=== PATIENT | female | born 1980 | race Two or more races ===

== ENCOUNTER → 2017-04-17 | Outpatient (CLI) | payer BC | END | disposition home or self-care (01) | LOC: CFH 07:27 | PROVIDERS: ATTEND Obstetrics & Gynecology Female Pelvic Medicine and Reconstructive Surgery | DX: N63 Unspecified lump in breast (principal); N93.8 Other specified abnormal uterine and vaginal bleeding; N64.3 Galactorrhea not associated with childbirth | CPT/HCPCS: 76642; 76830; G0204 ==

== ENCOUNTER 2018-06-23 12:50 | Emergency (ER) | payer BC ==
[~2018-06-23] VITALS: Ht 152.4 cm; Wt 62.0 kg
[2018-06-23] MEDS ORDERED: ONDANSETRON ODT 4 MG PO ONE ×2 (13:30→14:00)
[2018-06-23] MEDS ORDERED: DEXAMETHASONE 4 MG/ML, 1ML PO ONE (13:30)
[2018-06-23] MEDS ORDERED: PLEASE ENTER ALLERGIES MC SCH (13:30)
[2018-06-23] MEDS ORDERED: ONDANSETRON ODT 4 MG ONE (14:28)
[2018-06-23 15:15] VITALS: BP 141/86
== END 2018-06-23 16:17 | disposition home or self-care (01) ==
LOC: ED 15:15
DX: J02.8 Acute pharyngitis due to other specified organisms (principal); B97.89 Other viral agents as the cause of diseases classified elsewhere; R10.13 Epigastric pain
CPT/HCPCS: 87081; 87880; 99284; J1100; Q0162

== ENCOUNTER 2019-10-31 15:33 | Observation (INO) | payer BC ==
[~2019-10-31] VITALS: Ht 165.1 cm; Wt 56.7 kg
[2019-10-31 16:13] LABS: BASOPHILS # (AUTO) 0.02 x10^3/uL (0-0.1); BASOPHILS % (AUTO) 0 % (0-1); EOSINOPHILS # (AUTO) 0.04 x10^3/uL (0-0.4); EOSINOPHILS % (AUTO) 0 % (1-7); LYMPHOCYTES # (AUTO) 1.43 x10^3/uL (1-3.4); LYMPHOCYTES % (AUTO) 11 % (22-44); MD NO; MEAN CORPUSCULAR HEMOGLOBIN 30.4 pg (27.0-34.8); MEAN CORPUSCULAR HGB CONC 33.4 g/dL (32.4-35.8); MEAN PLATELET VOLUME 7.6 fL (7.4-10.4); MONOCYTES # (AUTO) 0.71 x10^3/uL (0.2-0.8); MONOCYTES % (AUTO) 6 % (2-9); NEUTROPHILS # (AUTO) 10.36 x10^3/uL (1.8-6.8); NEUTROPHILS % (AUTO) 83 % (42-75); PLATELET COUNT 379 x10^3/uL (130-400); RED BLOOD COUNT 4.71 x10^6/uL (3.82-5.3); RED CELL DISTRIBUTION WIDTH 13.3 % (9.6-15.2)
[2019-10-31 16:26] LABS: ALANINE AMINOTRANSFERASE 30 U/L (12-78); ALBUMIN 3.4 g/dL (3.4-5.0); ANION GAP 5 mmol/L (5-15); CALCIUM 8.5 mg/dL (8.5-10.1); CHLORIDE 106 mmol/L (98-107); CREATININE 0.69 mg/dL (0.55-1.02)
[2019-10-31 16:28] LABS: ALKALINE PHOSPHATASE 65 U/L (45-117); BILIRUBIN,TOTAL 0.2 mg/dL (0.2-1.0); TOTAL PROTEIN 7.5 g/dL (6.4-8.2)
--- NOTE | 2019-10-31 16:40 | NUR ---
PT WITH C/O ABD CRAMPING AND DIARRHEA FOR 2 WEEKS, STATES SHE HAS A HX OF IBS BUT SEEMS TO BE WORSE THAN USUAL, PT RECENTLY TAKING ABX FOR "SORE THROAT". PT STATES SHE WAS SENT HERE BY HER PCP TO HAVE A CT OF ABD COMPLETED. PT AMBULATED TO BR TO ATTEMPT TO PROVIDE STOOL AND URINE SAMPLES. PT STATES SHE IS UNABLE TO HAVE BM AT THIS TIME, UA COLLECTED AND SENT. PIV INITIATED, PT TO BP, CONT PULSE OX.
[2019-10-31 17:13] LABS: MICROSCOPIC INDICATED
[2019-10-31 17:27] LABS: CULTURE INDICATED? NO
[2019-10-31] MEDS ORDERED: OMNIPAQUE 350 MG/ML, 100ML BOTTLE ONE (17:47)
[2019-10-31] MEDS ORDERED: SODIUM CHLORIDE FLUSH 10ML SYR IVF PRN (19:00)
[2019-10-31] MEDS ORDERED: SODIUM CHLORIDE 0.9% 1,000 ML IV ONE (19:00)
--- NOTE | 2019-10-31 19:08 | NUR ---
BEDSIDE REPORT RECIEVED FROM JACOBY BAUMANN
[2019-10-31] MEDS ORDERED: METRONIDAZOLE PMX 500MG/100ML 100 ML IV SCH (19:30)
[2019-10-31] MEDS ORDERED: ONDANSETRON 2MG/ML, 2ML IVPush PRN (19:30)
[2019-10-31] MEDS: SODIUM CHLORIDE 0.9% 1,000 ML IV SCH (20:05)
--- NOTE | 2019-10-31 20:05 | NUR ---
REPORT TO JACOBY HICKS
[2019-10-31 20:21] VITALS: BP 145/81
[2019-10-31] MEDS: ACETAMINOPHEN 325 MG TABLET PO PRN (21:22)
[2019-10-31 22:19] LABS: CLOSTRIDIUM DIFFICILE ANTIGEN POSITIVE; CLOSTRIDIUM DIFFICILE TOXIN POSITIVE (Negative)
[2019-10-31] MEDS: VANCOMYCIN 50 MG/ML ORAL SUSP PO SCH (23:53)
[2019-11-01] MEDS: KETOROLAC 30 MG/1 ML IVPush PRN ×4 (00:49→20:52)
[2019-11-01 03:04] VITALS: BP 127/80
[2019-11-01] MEDS: VANCOMYCIN 50 MG/ML ORAL SUSP PO SCH ×3 (05:15→17:03)
[2019-11-01] MEDS: SODIUM CHLORIDE 0.9% 1,000 ML IV SCH ×2 (05:17→18:23)
[2019-11-01 05:27] LABS: ANION GAP 3 mmol/L (5-15); CHLORIDE 109 mmol/L (98-107); CREATININE 0.55 mg/dL (0.55-1.02)
[2019-11-01 05:39] LABS: BASOPHILS # (AUTO) 0.06 x10^3/uL (0-0.1); BASOPHILS % (AUTO) 1 % (0-1); EOSINOPHILS # (AUTO) 0.09 x10^3/uL (0-0.4); EOSINOPHILS % (AUTO) 1 % (1-7); LYMPHOCYTES # (AUTO) 1.57 x10^3/uL (1-3.4); LYMPHOCYTES % (AUTO) 14 % (22-44); MD NO; MEAN CORPUSCULAR HEMOGLOBIN 30.3 pg (27.0-34.8); MEAN CORPUSCULAR HGB CONC 33.8 g/dL (32.4-35.8); MEAN CORPUSCULAR VOLUME 89.5 fL (80-100); MEAN PLATELET VOLUME 7.8 fL (7.4-10.4); MONOCYTES # (AUTO) 0.66 x10^3/uL (0.2-0.8); MONOCYTES % (AUTO) 6 % (2-9); NEUTROPHILS # (AUTO) 9.18 x10^3/uL (1.8-6.8); NEUTROPHILS % (AUTO) 79 % (42-75); PLATELET COUNT 286 x10^3/uL (130-400); RED BLOOD COUNT 4.27 x10^6/uL (3.82-5.3); RED CELL DISTRIBUTION WIDTH 13.4 % (9.6-15.2)
[2019-11-01 08:20] VITALS: BP 141/85
[2019-11-01 14:45] VITALS: BP 159/91
[2019-11-01 19:39] VITALS: BP 146/91
[2019-11-02] MEDS: VANCOMYCIN 50 MG/ML ORAL SUSP PO SCH ×4 (00:04→17:13)
[2019-11-02] MEDS ORDERED: MORPHINE SULFATE 4 MG/ML, 1ML IVPush PRN (00:30)
[2019-11-02 00:32] VITALS: BP 133/83
[2019-11-02] MEDS: SODIUM CHLORIDE 0.9% 1,000 ML IV SCH (00:35)
[2019-11-02] MEDS: KETOROLAC 30 MG/1 ML IVPush PRN ×2 (04:16→11:02)
[2019-11-02 05:57] LABS: BASOPHILS # (AUTO) 0.03 x10^3/uL (0-0.1); BASOPHILS % (AUTO) 0 % (0-1); EOSINOPHILS # (AUTO) 0.08 x10^3/uL (0-0.4); EOSINOPHILS % (AUTO) 1 % (1-7); LYMPHOCYTES # (AUTO) 1.21 x10^3/uL (1-3.4); LYMPHOCYTES % (AUTO) 10 % (22-44); MD NO; MEAN CORPUSCULAR HEMOGLOBIN 30.2 pg (27.0-34.8); MEAN CORPUSCULAR HGB CONC 33.4 g/dL (32.4-35.8); MEAN CORPUSCULAR VOLUME 90.4 fL (80-100); MONOCYTES # (AUTO) 0.63 x10^3/uL (0.2-0.8); MONOCYTES % (AUTO) 5 % (2-9); NEUTROPHILS # (AUTO) 10.57 x10^3/uL (1.8-6.8); NEUTROPHILS % (AUTO) 85 % (42-75); PLATELET COUNT 274 x10^3/uL (130-400); RED BLOOD COUNT 4.11 x10^6/uL (3.82-5.3); RED CELL DISTRIBUTION WIDTH 13.2 % (9.6-15.2)
[2019-11-02 06:07] LABS: ANION GAP 8 mmol/L (5-15); CALCIUM 7.5 mg/dL (8.5-10.1); CHLORIDE 108 mmol/L (98-107)
[2019-11-02 06:08] LABS: CREATININE 0.49 mg/dL (0.55-1.02)
[2019-11-02 07:15] VITALS: BP 128/84
[2019-11-02] MEDS ORDERED: POTASSIUM CHLORIDE 20 MEQ TAB.ER.PRT PO ONE (07:30)
[2019-11-02 13:41] VITALS: BP 137/64
[2019-11-02] MEDS ORDERED: BUPR300T4 PO (14:46)
[2019-11-02] MEDS ORDERED: ENOXAPARIN 40 MG/0.4 ML SQ SCH (15:00)
[2019-11-02] MEDS ORDERED: SODIUM CHLORIDE 0.9% 1,000 ML IV SCH (19:05)
[2019-11-02] MEDS: BUPROPION SR 150 MG TABLET PO SCH (20:19)
[2019-11-02] MEDS: ACETAMINOPHEN 325 MG TABLET PO PRN (20:19)
[2019-11-02 20:26] VITALS: BP 135/91
[2019-11-03] MEDS: VANCOMYCIN 50 MG/ML ORAL SUSP PO SCH ×3 (00:23→11:51)
[2019-11-03 02:48] VITALS: BP 129/81
[2019-11-03 05:51] LABS: BASOPHILS # (AUTO) 0.05 x10^3/uL (0-0.1); BASOPHILS % (AUTO) 1 % (0-1); EOSINOPHILS # (AUTO) 0.17 x10^3/uL (0-0.4); EOSINOPHILS % (AUTO) 2 % (1-7); LYMPHOCYTES # (AUTO) 1.33 x10^3/uL (1-3.4); LYMPHOCYTES % (AUTO) 12 % (22-44); MD NO; MEAN CORPUSCULAR HGB CONC 33.2 g/dL (32.4-35.8); MEAN CORPUSCULAR VOLUME 90.4 fL (80-100); MONOCYTES # (AUTO) 0.65 x10^3/uL (0.2-0.8); MONOCYTES % (AUTO) 6 % (2-9); NEUTROPHILS # (AUTO) 8.66 x10^3/uL (1.8-6.8); NEUTROPHILS % (AUTO) 80 % (42-75); PLATELET COUNT 254 x10^3/uL (130-400); RED BLOOD COUNT 4.18 x10^6/uL (3.82-5.3); RED CELL DISTRIBUTION WIDTH 13.2 % (9.6-15.2)
[2019-11-03 06:00] LABS: ANION GAP 5 mmol/L (5-15); CALCIUM 8.2 mg/dL (8.5-10.1); CHLORIDE 107 mmol/L (98-107)
[2019-11-03 06:01] LABS: CREATININE 0.54 mg/dL (0.55-1.02)
[2019-11-03] MEDS ORDERED: POTASSIUM CHLORIDE 20 MEQ TAB.ER.PRT PO ONE (07:30)
[2019-11-03] MEDS: ACETAMINOPHEN 325 MG TABLET PO PRN (09:06)
[2019-11-03] MEDS: BUPROPION SR 150 MG TABLET PO SCH (09:07)
[2019-11-03 09:24] VITALS: BP 109/63
[2019-11-03] MEDS ORDERED: VANC1VIA3 PO (09:45)
== END 2019-11-03 12:04 | disposition home or self-care (01) ==
LOC: ED 19:23 → EDIP 19:24 → INTOOBSV 19:24 → 3N 20:17
PROVIDERS: ADMIT Internal Medicine; ATTEND Internal Medicine
DX: A04.72 Enterocolitis due to Clostridium difficile, not specified as recurrent (principal); R19.7 Diarrhea, unspecified; F32.9 Major depressive disorder, single episode, unspecified; A41.9 Sepsis, unspecified organism; E87.6 Hypokalemia; Z79.899 Other long term (current) drug therapy
CPT/HCPCS: 36415; 74177; 80048; 80053; 81001; 81025; 83735; 84100; 85025; 87324; 89055; 96361; 96374; 96375; 96376; 99284; G0378; J1885; J2270; J3370; J7030; Q9967; 99285

== ENCOUNTER 2019-12-24 10:05 | Emergency (ER) | payer BC ==
[~2019-12-24] VITALS: Ht 152.4 cm; Wt 56.5 kg
[~2019-12-24 10:05] MED LIST: BUPR300T94 PO; VANC1VIA3 PO
[2019-12-24] MEDS ORDERED: DEXAMETHASONE 4 MG/ML, 5ML ONE (13:55)
[2019-12-24] MEDS ORDERED: DEXAMETHASONE 4 MG/ML, 1ML PO ONE (14:00)
[2019-12-24] MEDS ORDERED: BICILLIN-LA 2,400,000 UNITS/4 ML IM ONE (14:00)
--- NOTE | 2019-12-24 14:00 | NUR ---
PATIENT ARRIVES WTIH SORE THROAT AND HAD A COUGH BUT STATES ITS MOSTLY GONE. NOTED A COUGH. SHE STATES THREE DAYS AGO SORE THROAT AND ALL OVER BODY ACHES.
[2019-12-24 14:07] VITALS: BP 124/78
--- NOTE | 2019-12-24 14:07 | NUR ---
waiting for medicine from pharmacy
== END 2019-12-24 14:54 | disposition home or self-care (01) ==
LOC: ED 13:30
DX: J02.0 Streptococcal pharyngitis (principal)
CPT/HCPCS: 96372; 99283; J0561; J1100

== ENCOUNTER 2020-03-18 20:08 | Emergency (ER) | payer BC ==
[~2020-03-18] VITALS: Ht 152.4 cm; Wt 59.1 kg
--- NOTE | 2020-03-18 20:50 | NUR ---
PT HERE FOR FATIGUE AND SORE THROAT. PT HAS HX OF STREP. VSS. PA AT BEDSIDE.
[2020-03-18 21:40] LABS: BASOPHILS # (AUTO) 0.07 x10^3/uL (0-0.1); BASOPHILS % (AUTO) 1 % (0-1); EOSINOPHILS # (AUTO) 0.12 x10^3/uL (0-0.4); EOSINOPHILS % (AUTO) 2 % (1-7); LYMPHOCYTES # (AUTO) 1.91 x10^3/uL (1-3.4); LYMPHOCYTES % (AUTO) 28 % (22-44); MD NO; MEAN CORPUSCULAR HEMOGLOBIN 29.8 pg (27.0-34.8); MEAN CORPUSCULAR HGB CONC 33.6 g/dL (32.4-35.8); MEAN CORPUSCULAR VOLUME 88.7 fL (80-100); MEAN PLATELET VOLUME 8.5 fL (7.4-10.4); MONOCYTES # (AUTO) 0.54 x10^3/uL (0.2-0.8); MONOCYTES % (AUTO) 8 % (2-9); NEUTROPHILS # (AUTO) 4.14 x10^3/uL (1.8-6.8); NEUTROPHILS % (AUTO) 61 % (42-75); PLATELET COUNT 278 x10^3/uL (130-400); RED BLOOD COUNT 4.69 x10^6/uL (3.82-5.3); RED CELL DISTRIBUTION WIDTH 12.9 % (9.6-15.2)
[2020-03-18 21:46] LABS: ALANINE AMINOTRANSFERASE 18 U/L (12-78); ALBUMIN 3.4 g/dL (3.4-5.0); ANION GAP 4 mmol/L (5-15); CALCIUM 8.6 mg/dL (8.5-10.1); CHLORIDE 106 mmol/L (98-107); CREATININE 0.71 mg/dL (0.55-1.02)
[2020-03-18 21:50] LABS: ALKALINE PHOSPHATASE 58 U/L (45-117); BILIRUBIN,TOTAL 0.2 mg/dL (0.2-1.0); TOTAL PROTEIN 7.6 g/dL (6.4-8.2)
--- NOTE | 2020-03-18 22:00 | NUR ---
pt resting with no needs at this time. call light in reach
[2020-03-18 22:11] VITALS: BP 122/79
[2020-03-18 22:47] LABS: MICROSCOPIC NOT IND
--- NOTE | 2020-03-18 23:11 | NUR ---
Patient given discharge instructions and they have confirmed that they understand the instructions. Patient ambulatory with steady gait.
== END 2020-03-18 23:14 | disposition home or self-care (01) ==
LOC: ED 23:02
DX: R53.1 Weakness (principal); B34.9 Viral infection, unspecified; R50.9 Fever, unspecified; Z20.828 Contact with and (suspected) exposure to other viral communicable diseases; R51 Headache; R53.83 Other fatigue
CPT/HCPCS: 36415; 71045; 80053; 81003; 84703; 85025; 99284; U0001

== ENCOUNTER 2020-10-11 17:29 | Emergency (ER) | payer BC ==
[~2020-10-11] VITALS: Ht 152.4 cm; Wt 60.7 kg
--- NOTE | 2020-10-11 17:52 | NUR ---
assumed care of pt. pt ambulatory fom triage c/o SOB. EGK completed at bedside
--- NOTE | 2020-10-11 17:52 | NUR ---
Dr. eMjia at bedside for eval
--- NOTE | 2020-10-11 18:10 | NUR ---
lab at bedside to draw
--- NOTE | 2020-10-11 18:15 | NUR ---
CXR at bedside pt c/o intermittent SOB and sinus congestion for a few days. pt reports that she just had a long plane ride form [place]. pt reports that she has had some bloody mucus from her sinuses, but that she has chronic sinus congestion. no resp. distres. denies CP. pt sitting up on [employer] on her cell phone. no family at bedside pt updated on POC
[2020-10-11] MEDS ORDERED: SUMA25TA4 PO (18:28)
[2020-10-11 18:37] LABS: BASOPHILS % (AUTO) 1 % (0-1); EOSINOPHILS % (AUTO) 1 % (1-7); LYMPHOCYTES % (AUTO) 10 % (22-44); MEAN CORPUSCULAR HEMOGLOBIN 30.9 pg (27.0-34.8); MEAN CORPUSCULAR HGB CONC 34.1 g/dL (32.4-35.8); MEAN PLATELET VOLUME 8.1 fL (7.4-10.4); MONOCYTES % (AUTO) 9 % (2-9); NEUTROPHILS % (AUTO) 80 % (42-75); PLATELET COUNT 316 x10^3/uL (130-400); RED BLOOD COUNT 4.53 x10^6/uL (3.82-5.3); RED CELL DISTRIBUTION WIDTH 12.9 % (9.6-15.2)
[2020-10-11 18:38] LABS: ALANINE AMINOTRANSFERASE 25 U/L (12-78); ALBUMIN 3.7 g/dL (3.4-5.0); ANION GAP 7 mmol/L (5-15); C-REACTIVE PROTEIN, QUANT 0.39 mg/dL (0.02-0.49); CALCIUM 9.3 mg/dL (8.5-10.1); CHLORIDE 104 mmol/L (98-107); CREATININE 0.71 mg/dL (0.55-1.02); MD NO
[2020-10-11 18:41] LABS: ALKALINE PHOSPHATASE 74 U/L (45-117); BILIRUBIN,TOTAL 0.2 mg/dL (0.2-1.0)
--- NOTE | 2020-10-11 18:48 | NUR ---
REPORT RECIEVED FROM JACOBY PHELAN
--- NOTE | 2020-10-11 18:49 | NUR ---
no changes. [facility] report to Daniella DOZIER
[2020-10-11 19:13] VITALS: BP 150/84
== END 2020-10-11 20:02 | disposition home or self-care (01) ==
LOC: ED 18:47
DX: U07.1 COVID-19 (principal); J06.9 Acute upper respiratory infection, unspecified; R00.0 Tachycardia, unspecified
CPT/HCPCS: 71045; 80053; 84145; 85025; 85379; 86140; 87635; 93005; 99285